=== PATIENT | female | born 1975 | race Two or more races ===

== ENCOUNTER 2016-11-09 01:44 | Emergency (ER) | payer MEDICAID ==
[~2016-11-09] VITALS: Ht 152.4 cm; Wt 54.9 kg
[~2016-11-09 01:44] MED LIST: KEFLEX500 MG ORAL; NKM; PHENAZOPYRIDIN200 MG ORAL
[2016-11-09 02:25] VITALS: BP 135/77
[2016-11-09] MEDS ORDERED: LORazepam 1mg tab ORAL ONE (02:30)
[2016-11-09] MEDS ORDERED: ATIVAN0.5 MG ORAL (02:33)
--- NOTE | 2016-11-09 02:34 | Emergency Room Report ---
History of Present Illness General Chief Complaint: Behavioral Complaint Source: Patient Present Illness HPI Is a 40-year-old female with a history anxiety. She was doing well. She got an argument with her fianc tonight in an anxiety attack. Has been ongoing for one hour now. Denies any fever chills denies any nausea vomiting. [place] short of breath and palpitation. Similar symptom in the past. No suicidal thought homicidal thought. No other complaint. Allergies: Coded Allergies: No Known Allergies (Unverified , 03/15/16) Patient History Past Medical History: see triage record, old chart reviewed, psych hx Past Surgical History: other Pertinent Family History: none Social History: Denies: smoking Last Menstrual Period: 2 weeks ago Now: No Immunizations: other Reviewed Nursing Documentation: PMH: Agreed, PSxH: Agreed Nursing Documentation-PMH History Of Psychiatric Problem: Yes - ANXIETY Review of Systems Eye: Denies: blurred vision, eye pain ENT: Denies: ear pain, nose congestion, throat swelling Respiratory: Denies: cough, shortness of breath Cardiovascular: Denies: chest pain, palpitations Gastrointestinal: Denies: abdominal pain, diarrhea, nausea, vomiting Musculoskeletal: Denies: back pain, joint pain Skin: Denies: rash Neurological: Denies: headache, numbness Endocrine: Denies: increased thirst, increased urine Hematologic/Lymphatic: Denies: easy bruising All Other Systems: negative except mentioned in HPI Physical Exam Vital Signs Date Time Temp Pulse Resp B/P Pulse Ox O2 Delivery O2 Flow Rate FiO2 11/09/16 02:15 98.2 69 18 135/77 98 Room Air vitals normal Sp02 EP Interpretation: reviewed, normal General Appearance: well appearing, no apparent distress, alert Head: normocephalic, atraumatic Eyes: bilateral eye EOMI, bilateral eye PERRL ENT: hearing grossly normal, normal pharynx Neck: full range of motion, supple, no meningismus Respiratory: chest non-tender, lungs clear, normal breath sounds Cardiovascular #1: regular rate, rhythm, no murmur Gastrointestinal: normal bowel sounds, non tender, no mass, no organomegaly, no bruit, non-distended Musculoskeletal: back normal, gait/station normal, normal range of motion Neurologic: alert, oriented x3 Psychiatric: anxious Skin: warm/dry Medical Decision Making Diagnostic Impression: Primary Impression: Panic anxiety syndrome ER Course Patient with anxiety. No suicidal thought homicidal thought. No particular for 5150. We'll discharge home. Last Vital Signs Date Time Temp Pulse Resp B/P Pulse Ox O2 Delivery O2 Flow Rate FiO2 11/09/16 02:15 98.2 69 18 135/77 98 Room Air Status: improved Disposition: HOME, SELF-CARE Condition: Stable Scripts Lorazepam* (ATIVAN*) 0.5 Mg Tablet 0.5 MG ORAL THREE TIMES A DAY, #21 TAB Prov: MOISÉS LEVIN M.D. 11/09/16 Additional Instructions: Followup with your DrLinda in 2-5 days. Return if symptom worsen. MOISÉS LEVIN M.D. Nov 09, 2016 02:34
[2016-11-09 02:38] VITALS: BP 135/77
== END 2016-11-09 02:38 | disposition home or self-care (01) ==
LOC: EMR 02:31
DX: F41.8 Other specified anxiety disorders (principal)
CPT/HCPCS: 99282

== ENCOUNTER 2018-10-10 00:27 | Emergency (ER) | payer MEDICAID ==
[~2018-10-10] VITALS: Ht 152.4 cm; Wt 54.9 kg
[~2018-10-10 00:27] MED LIST changes: +ATIVAN0.5 MG ORAL
--- NOTE | 2018-10-10 00:55 | NUR ---
ED Nurse Note: Patient presents as a walk-in patient with complaints of sporatic bouts of pain in the head, varying in location. Patient appears anxious, vital signs stable. Patient states she is worried because her mom had an anuerysm. Patient denies taking any medication or having any pertinent history.
[2018-10-10 00:57] VITALS: BP 156/80
[2018-10-10 01:21] VITALS: BP 143/68
[2018-10-10] MEDS ORDERED: IBUPROFEN600 MG ORAL (01:43)
--- NOTE | 2018-10-10 01:43 | Emergency Room Report ---
History of Present Illness General Chief Complaint: Headache Source: Patient Present Illness HPI Is a 42-year-old female with history of anxiety. She presents with chief complaint of headache. Headache is sharp and intermittent. This been ongoing for about a week. She googled the symptoms tonight and is also show that she may have an aneurysm, meningitis, bleed. This caused her to be very anxious he came in. Pain is usually back of her neck and head. Throbbing in nature. No nausea no vomiting. No fever chills but no focal deficit. No blurry vision. Better with [id number]-[id number] medication. Allergies: Coded Allergies: No Known Allergies (Unverified , 03/15/16) Patient History Past Medical History: see triage record, old chart reviewed Past Surgical History: none Pertinent Family History: none Social History: Denies: smoking Now: No : 5 Para: 2 Immunizations: other Reviewed Nursing Documentation: PMH: Agreed; PSxH: Agreed Nursing Documentation-PMH Past Medical History: No Stated History Review of Systems Eye: Denies: eye pain, blurred vision ENT: Denies: ear pain, nose congestion, throat swelling Respiratory: Denies: cough, shortness of breath Cardiovascular: Denies: chest pain, palpitations Gastrointestinal: Denies: abdominal pain, diarrhea, nausea, vomiting Musculoskeletal: Denies: back pain, joint pain Skin: Denies: rash Neurological: Reports: headache; Denies: numbness Endocrine: Denies: increased thirst, increased urine Hematologic/Lymphatic: Denies: easy bruising All Other Systems: negative except mentioned in HPI Physical Exam Vital Signs Date Time Temp Pulse Resp B/P (MAP) Pulse Ox O2 Delivery O2 Flow Rate FiO2 10/10/18 00:52 98.1 85 18 156/80 (105) 100 Room Air Vitals with high blood pressure Sp02 EP Interpretation: reviewed, normal General Appearance: well appearing, no apparent distress, alert Head: normocephalic, atraumatic Eyes: bilateral eye PERRL, bilateral eye EOMI ENT: hearing grossly normal, normal pharynx Neck: full range of motion, supple, no meningismus Respiratory: chest non-tender, lungs clear, normal breath sounds Cardiovascular #1: regular rate, rhythm, no murmur Gastrointestinal: normal bowel sounds, non tender, no mass, no organomegaly, no bruit, non-distended Musculoskeletal: back normal, gait/station normal, normal range of motion Psychiatric: mood/affect normal Medical Decision Making Diagnostic Impression: Primary Impression: Headache Qualified Codes: R51 - Headache ER Course Presents with headache. Initial blood pressure is elevated but is coming down. This may be exacerbated by anxiety. No evidence of any bleed, meningitis, CVA or TIA. No neoplastic process. Will discharge home with reassurance. CT/MRI/US Diagnostic Results CT/MRI/US Diagnostic Results : Imaging Test Ordered: CT head Impression Negative per radiologist Last Vital Signs Date Time Temp Pulse Resp B/P (MAP) Pulse Ox O2 Delivery O2 Flow Rate FiO2 10/10/18 01:21 98.1 99 18 143/68 100 Room Air Status: improved Disposition: HOME, SELF-CARE Condition: Stable Scripts Ibuprofen* (MOTRIN*) 600 Mg Tablet 600 MG ORAL THREE TIMES A DAY, #30 TAB 0 Refills Prov: Luis Alberto Snyder MD 10/10/18 Patient Instructions: General Headache Without Cause Additional Instructions: Follow-up with your doctor in a week. Have your doctor recheck on your blood pressure. It is slightly elevated here. Return if symptoms worsen. Luis Alberto Snyder MD Oct 10, 2018 01:43
--- NOTE | 2018-10-10 01:51 | NUR ---
ED Nurse Note: Patient cleared for discharge, verbalized understanding when receiving discharge instructions. ID band removed. Patient departed with all belongings after checking out at discharge desk.
[2018-10-10 01:52] VITALS: BP 143/68
--- NOTE | 2018-10-10 14:29 | Diagnostic Imaging Report ---
Indication: Headache Technique: Contiguous 5 mm thick transaxial imaging of the head obtained in a Siemens Sensation [address] scanner. Soft tissue and bone windows generated. Automatic Exposure Control was utilized. Total Dose length Product (DLP): 1333.[address] Dose Index Volume (CTDIvol): 70.38 mGy Comparison: none Findings: The size and configuration of the cortical sulci, basal cisterns, and ventricles are within normal limits for age. There is no mass effect, midline shift, or edema identified. There is no evidence of acute hemorrhage or abnormal intra-axial or extra-axial fluid collections. The bones and soft tissues are unremarkable. Impression: No mass effect, edema or acute bleed. [facility] has communicated the preliminary results to the Emergency Department. Their findings are largely concordant with this report. The CT scanner at [facility] is accredited by the [employer] and the scans are performed using dose optimization techniques as appropriate to a performed exam including Automatic Exposure control.
== END 2018-10-10 01:47 | disposition home or self-care (01) ==
LOC: EMR 01:10
DX: R51 Headache (principal)
CPT/HCPCS: 70450; 99284

== ENCOUNTER 2018-11-24 09:02 | Emergency (ER) | payer MEDICAID ==
[~2018-11-24] VITALS: Ht 152.4 cm; Wt 55.3 kg
[~2018-11-24 09:02] MED LIST changes: +IBUPROFEN600 MG ORAL
--- NOTE | 2018-11-24 09:15 | NUR ---
ED Nurse Note: PT WALKED IN TO ER TODAY FROM HOME. AOX4. PT C/O ITCHING AND PAINFUL INSECT BITES TO LEFT CALF, LEFT THIGH, AND RIGHT THIGH X 2 DAYS AGO. SITES APPEAR MILDLY SWOLLEN. NO ACTIVE DISCHARGE OR BLEEDING. SITES HOT TO TOUCH. PT UNSURE OF WHAT BIT HER.
[2018-11-24 09:16] VITALS: BP 118/64
[2018-11-24] MEDS ORDERED: DIPHENHYDRAMINE25 M1 ORAL (09:31)
[2018-11-24] MEDS ORDERED: CEPHALEXIN500 M1 ORAL (09:31)
[2018-11-24] MEDS ORDERED: HYDROCORTISONE-30 GM TOPIC (09:31)
--- NOTE | 2018-11-24 09:32 | Emergency Room Report ---
History of Present Illness General Chief Complaint: Animal Bite Source: Patient Present Illness HPI Disclaimer: Please note that this report is being documented using [employer] technology. This can lead to erroneous entry secondary to incorrect interpretation by the dictating instrument. HPI: This is an otherwise healthy 43-year-old female presenting for evaluation of skin rash. The patient states she first noticed the symptoms approximately 2 days ago. She was outside when she felt something brushed by her legs and and then immediately felt itching over the lateral calf and the back of the right thigh. Over the past 2 days she has had a progressive swelling and redness develop, both are circular approximately 5 to 7 cm. She denies any skin breakdown, drainage, bleeding. She cannot recall a specific bites but states that she was scratching the areas due to itching. She otherwise denies any systemic symptoms such as fevers, chills, chest pain, shortness of breath, wheezing, abdominal pain, vomiting or diarrhea. Has not taken any medication yet. PMH: Denies PSH: Denies Allergies: Denies Social Hx: Denies excessive drug or alcohol use Allergies: Coded Allergies: No Known Allergies (Unverified , 03/15/16) Patient History Last Menstrual Period: 09/2018 Now: No Nursing Documentation-PMH Past Medical History: No Stated History Review of Systems All Other Systems: negative except mentioned in HPI Physical Exam Vital Signs Date Time Temp Pulse Resp B/P (MAP) Pulse Ox O2 Delivery O2 Flow Rate FiO2 11/24/18 09:07 99.0 71 20 123/62 (82) 99 Room Air General: Awake and alert, no acute distress HEENT: NC/AT. EOMI. Resp: Normal work of breathing. Skin: Circular area of erythema that is warm to the touch and mildly tender to palpation approximately 7 cm in diameter. No overlying skin breakdown or drainage. Secondary approximately 5 cm across over the posterior aspect of the right thigh just below the gluteal fold. Warm to the touch, tender to palpation. No fluctuance. No skin breakdown or drainage MSK: Normal tone and bulk. Moving all extremities. No obvious deformity. Neuro: Awake and alert. Mentating appropriately. Medical Decision Making Diagnostic Impression: Primary Impression: Cellulitis ER Course 43-year-old female presents for evaluation of itchy erythematous and warm lesions over her skin over the past 2 days. Appears to be 2 areas of early cellulitis possibly related to an insect bite or scratch. We will start the patient on Keflex, hydrocortisone cream and Benadryl. She can follow-up with the clinics listed in her discharge paperwork and return to the emergency department she had any new or worsening symptoms. Last Vital Signs Date Time Temp Pulse Resp B/P (MAP) Pulse Ox O2 Delivery O2 Flow Rate FiO2 11/24/18 09:16 98.7 74 18 118/64 98 Room Air Disposition: HOME, SELF-CARE Condition: Stable Scripts Diphenhydramine Hcl* (DIPHENHYDRAMINE HCL*) 25 Mg Capsule 25 MG ORAL Q8H PRN for Itching, #30 CAP 0 Refills Prov: Robert Ennis MD 11/24/18 Hydrocortisone/Aloe Vera 1%* (HYDROCORTISONE-ALOE 1% CREAM*) Y Cr 1 APPLIC TOPIC Q6H PRN for Itching, #30 GM Prov: Robert Ennis MD 11/24/18 Cephalexin* (CEPHALEXIN*) 500 Mg Tablet 500 MG ORAL EVERY 12 HOURS for 10 Days, #20 CAP Prov: Robert Ennis MD 11/24/18 Referrals: Ashwin Mireles [facility] Patient Instructions: Cellulitis Additional Instructions: He will be started on antibiotics for skin infection which may be related to an insect bite or scratch. Use the medicated cream and the Benadryl as needed for itching and skin discomfort. If you are not significantly better after several days of antibiotics or if you notice a worsening swelling, drainage, warmth or spreading of the redness please return to the emergency department for reevaluation. Robert Ennis MD Nov 24, 2018 09:32
--- NOTE | 2018-11-24 09:33 | NUR ---
ED Nurse Note: PT SITTING PEACEFULLY IN BED IN NAD. AOX4. PRESCRIPTIONS AND DISCHARGE PAPERWORK EXPLAINED TO PT. PT VERBALIZES UNDERSTANDING AND ALL QUESTIONS ANSWERED. PRESCRIPTIONS SENT ELECTRONICALLY TO PT'S PHARMACY. DISCHARGE PAPERWORK GIVEN TO PT AND ID WRISTBAND REMOVED. PT WALKED OUT OF ER WITH STEADY GAIT AND ALL BELONGINGS.
[2018-11-24 09:34] VITALS: BP 122/62
== END 2018-11-24 09:35 | disposition home or self-care (01) ==
LOC: EMR 09:35
DX: L03.115 Cellulitis of right lower limb (principal)
CPT/HCPCS: 99282

== ENCOUNTER 2019-05-24 11:18 | Emergency (ER) | payer MEDICAID ==
[~2019-05-24] VITALS: Ht 152.4 cm; Wt 59.0 kg
[~2019-05-24 11:18] MED LIST changes: +CEPHALEXIN500 M1 ORAL; +DIPHENHYDRAMINE25 M1 ORAL; +HYDROCORTISONE-30 GM TOPIC
[2019-05-24 11:36] VITALS: BP 132/88
--- NOTE | 2019-05-24 11:38 | NUR ---
ED Nurse Note:pt. came with flu like symptoms and fever
--- NOTE | 2019-05-24 12:52 | NUR ---
ED Nurse Note:urine sent to labs
[2019-05-24 13:41] LABS: APPEARANCE,URINE CLEAR; BILIRUBIN, URINE NEGATIVE (NEGATIVE); COLOR,URINE PALE YELLOW; GLUCOSE, URINE (UA) NEGATIVE (NEGATIVE); KETONES,URINE NEGATIVE (NEGATIVE); LEUKOCYTE ESTERASE ,URINE 2+ (NEGATIVE); NITRITE,URINE NEGATIVE (NEGATIVE); PH,URINE 7 (4.5-8.0); PROTEIN,URINE NEGATIVE (NEGATIVE); UROBILINOGEN,URINE NORMAL MG/DL (0.0-1.0)
--- NOTE | 2019-05-24 14:00 | Emergency Room Report ---
History of Present Illness General Chief Complaint: Flu Like Symptoms Source: Patient Present Illness HPI 43 YO Female presents to the ED c/o 8/10 in severity generalized body aches with fevers and chills x [address], Cough, or nasal congestion. Pt. reports having a HOOD that is 4/10 in severity. She denies N/V/D/C. She reports urinary frequency. Denies hematuria, dysuria or urgency. She denies suspicion of . She denies abdominal pain or tenderness. She denies rashes, recent travel or ill contacts. She reports she did not receive this years Flu vaccine. She is also c/o burn form curling iron on her right breast x 3 days. She reports tenderness and sensitivity. She denies blisters, pus or bleeding. Allergies: Coded Allergies: No Known Allergies (Unverified , 03/15/16) Patient History Past Medical History: see triage record Past Surgical History: none Pertinent Family History: none Last Menstrual Period: now Now: No Reviewed Nursing Documentation: PMH: Agreed; PSxH: Agreed Nursing Documentation-PMH Past Medical History: No Stated History Review of Systems All Other Systems: negative except mentioned in HPI Physical Exam Vital Signs Date Time Temp Pulse Resp B/P (MAP) Pulse Ox O2 Delivery O2 Flow Rate FiO2 05/24/19 11:26 101.8 92 20 132/88 (103) 96 Room Air Sp02 EP Interpretation: reviewed, normal General Appearance: no apparent distress, alert, GCS 15, non-toxic Head: normocephalic, atraumatic Eyes: bilateral eye normal inspection, bilateral eye PERRL ENT: hearing grossly normal, normal voice Neck: full range of motion Respiratory: chest non-tender, lungs clear, normal breath sounds, speaking full sentences, other - 2nd degree burn to the right breast about 2" in length. Cardiovascular #1: regular rate, rhythm Gastrointestinal: normal bowel sounds, non tender, soft Genitourinary: normal inspection, no CVA tenderness Musculoskeletal: back normal, normal range of motion, gait/station normal, non- tender Neurologic: alert, motor strength/tone normal, oriented x3, sensory intact, responsive, speech normal Psychiatric: judgement/insight normal Skin: other - 2nd degree burn to the right breast about 2" in length. Lymphatic: no adenopathy Medical Decision Making PA Attestation Dr. Ennis is my supervising Physician whom patient management has been discussed with. Diagnostic Impression: Primary Impression: Acute viral syndrome Additional Impressions: Second degree burn of breast Qualified Codes: T21.21XA - Burn of second degree of chest wall, initial encounter UTI (urinary tract infection) Qualified Codes: N30.01 - Acute cystitis with hematuria ER Course 43 YO Female presents to the ED c/o 8/10 in severity generalized body aches with fevers and chills x [address], Cough, or nasal congestion. Pt. reports having a HOOD that is 4/10 in severity. She denies N/V/D/C. She reports urinary frequency. Denies hematuria, dysuria or urgency. She denies suspicion of . She denies abdominal pain or tenderness. She denies rashes, recent travel or ill contacts. She reports she did not receive this years Flu vaccine. She is also c/o burn form curling iron on her right breast x 3 days. She reports tenderness and sensitivity. She denies blisters, pus or bleeding. Ddx considered but are not limited to Viral syndrome, UTI, URI, pneumonia, Flu, meningitis just to name a few. Vital signs: Pt. is febrile, the remaining VS are WNL H&PE are most consistent with Viral Syndrome or UTI. There is a linear second- degree burn to the right breast covering less than 1% adult BSA and is noncircumferential. NO CVA tenderness. ORDERS: -UA: moderate bacteria with increased inflammatory markers indicating UTI ED INTERVENTIONS: - Tylenol PO for fever and body aches. Silvadene cream is applied. PT. does not have CVA tenderness, given UA results c/w UTI and pt. being febrile will rx an extended course of abx. PT. stable for outpatient management. She is given very strict return to ED precautions. DISCHARGE: At this time pt. is stable for d/c to home. Will provide printed patient care instructions, and any necessary prescriptions. Care plan and follow up instructions have been discussed with the patient prior to discharge. Labs Test 05/24/19 11:30 Urine Color Pale yellow Urine Appearance Clear Urine pH 7 (4.5-8.0) Urine Specific [place] 1.010 (1.005-1.035) Urine Protein Negative (NEGATIVE) Urine Glucose (UA) Negative (NEGATIVE) Urine Ketones Negative (NEGATIVE) Urine Blood 2+ (NEGATIVE) Urine Nitrite Negative (NEGATIVE) Urine Bilirubin Negative (NEGATIVE) Urine Urobilinogen Normal MG/DL (0.0-1.0) Urine Leukocyte Esterase 2+ (NEGATIVE) Urine RBC 2-4 /HPF (0 - 2) Urine WBC 20-30 /HPF (0 - 2) Urine Squamous Epithelial Cells Moderate /LPF (NONE/OCC) Urine Bacteria Moderate /HPF (NONE) Last Vital Signs Date Time Temp Pulse Resp B/P (MAP) Pulse Ox O2 Delivery O2 Flow Rate FiO2 05/24/19 13:32 100.0 05/24/19 11:36 92 20 Room Air 05/24/19 11:36 132/88 96 Disposition: HOME, SELF-CARE Condition: Stable Scripts Trimethoprim/Sulfamethoxazole 160/800* (BACTRIM DS TABLET*) 1 Each Tablet 1 TAB ORAL TWICE A DAY for 10 Days, #20 TAB Prov: Angeles Haq 05/24/19 Ibuprofen* (MOTRIN*) 600 Mg Tablet 600 MG ORAL THREE TIMES A DAY, #30 TAB 0 Refills Prov: Angeles Haq 05/24/19 Acetaminophen* (TYLENOL EXTRA STRENGTH*) 500 Mg Tablet 500 MG ORAL Q6H PRN for Mild Pain/Temp > 100.5, #30 TAB 0 Refills Prov: Angeles Haq 05/24/19 Patient Instructions: Urinary Tract Infection, [id number] Additional Instructions: Take medications as directed. Follow up with a Primary Care Provider in 3-5 days, even if your symptoms have resolved. --Please review list of primary care clinics, if you do not already have a primary care provider Return sooner to ED if new symptoms occur, or current symptoms become worse. - Please note that this Emergency Department Report was dictated using [employer] technology software, occasionally this can lead to erroneous entry secondary to interpretation by the dictation equipment. Angeles Haq May 24, 2019 14:00
[2019-05-24] MEDS ORDERED: BACTRIM DS TAB1 EAC1 ORAL (14:08)
[2019-05-24] MEDS ORDERED: TYLENOL EXTRA500 MG ORAL (14:08)
[2019-05-24] MEDS ORDERED: IBUPROFEN600 MG ORAL (14:08)
--- NOTE | 2019-05-24 14:17 | NUR ---
ER DISCHARGE NOTE: Patient is cleared to be discharged per ERMD, pt is aox4, on room air, with stable vital signs. pt was given dc and prescription instructions, pt was able to verbalize understanding, pt is able to ambulate with steady gait. pt took all belongings.
[2019-05-24 14:20] VITALS: BP 132/88
== END 2019-05-24 14:20 | disposition home or self-care (01) ==
LOC: EMR 14:04
DX: B34.9 Viral infection, unspecified (principal); T21.21XA Burn of second degree of chest wall, initial encounter; T31.0 Burns involving less than 10% of body surface; N30.01 Acute cystitis with hematuria; X19.XXXA Contact with other heat and hot substances, initial encounter; Y93.89 Activity, other specified; Y92.9 Unspecified place or not applicable
CPT/HCPCS: 81003; 87086; 87181; Z7502; 99283

== ENCOUNTER 2019-09-21 13:20 | Emergency (ER) | payer MEDICAID ==
[~2019-09-21] VITALS: Ht 154.9 cm; Wt 56.7 kg
[~2019-09-21 13:20] MED LIST changes: +BACTRIM DS TAB1 EAC1 ORAL; +TYLENOL EXTRA500 MG ORAL
[2019-09-21 13:26] VITALS: BP 117/60
--- NOTE | 2019-09-21 15:38 | Diagnostic Imaging Report ---
Indication: Back pain, weakness Technique: Sagittal T1 and T2 fast spin echo, sagittal STIR, axial T1 and T2 fast spin-echo images of the lumbar spine Comparison: none Findings: There are 5 nonrib-bearing lumbar-type vertebral bodies, assuming 12 paired ribs. Vertebral body heights are maintained; there is no evidence of compression fracture. No acute fractures identified. The tip of the conus terminates at L1-L2. Visualized portions of the cord demonstrate no focal cord signal abnormality. Some pulsation artifact is noted. Is mild disc desiccation with no focal disc desiccation at L5-S1. At T12-L1: There is no significant central canal or foraminal stenosis. At L1-L2: There is no significant central canal or foraminal stenosis. At L2-L3: There is no significant central canal or foraminal stenosis. At L3-L4: There is no significant central canal or foraminal stenosis. At L4-L5: There is no significant central canal or foraminal stenosis. At L5-S1: There is disc desiccation and a small disc bulge which results in minimal anterior indentation of the thecal sac but no significant central canal stenosis. There is associated mild narrowing of the left neural foramen although fat is still noted around the exiting nerve root. No significant foraminal narrowing noted on the right. The abdominal aorta is normal in caliber. Imaged portions of the visceral abdomen and pelvis unremarkable. IMPRESSION: No evidence of acute fracture or traumatic malalignment. Small disc bulge at L5-S1 resulting in mild left foraminal stenosis.
[2019-09-21 15:53] VITALS: BP 117/60
--- NOTE | 2019-09-21 18:04 | Emergency Room Report ---
History of Present Illness General Chief Complaint: Headache Source: Patient Present Illness HPI 43-year-old female presents the ED for evaluation. States she feels numbness on the left side of her left leg. Lateral aspect of her left leg. Radiates down towards her toes. Denies any weakness. Denies any pain. Denies any bowel or bladder incontinence. Denies any back pain. No other aggravating relieving factors. Denies any other associated symptoms Allergies: Coded Allergies: No Known Allergies (Unverified , 03/15/16) COVID-19 Screening Contact w/high risk pt: No Recent Travel to affected area: No Experienced COVID-19 symptoms?: No COVID-19 Testing performed CLERK RATING: No Patient History Past Medical History: none Past Surgical History: none Pertinent Family History: none Social History: Denies: smoking, alcohol use, drug use Last Menstrual Period: September 05, 2019 Now: No Immunizations: UTD Reviewed Nursing Documentation: PMH: Agreed; PSxH: Agreed Nursing Documentation-PMH Past Medical History: No Stated History Review of Systems All Other Systems: negative except mentioned in HPI Physical Exam Vital Signs Date Time Temp Pulse Resp B/P (MAP) Pulse Ox O2 Delivery O2 Flow Rate FiO2 09/21/19 13:26 98.6 74 18 117/60 97 Room Air Sp02 EP Interpretation: reviewed, normal General Appearance: no apparent distress, alert, GCS 15, non-toxic Head: normocephalic, atraumatic Eyes: bilateral eye normal inspection, bilateral eye PERRL ENT: hearing grossly normal, normal pharynx, no angioedema, normal voice Neck: full range of motion, supple/symm/no masses Respiratory: chest non-tender, lungs clear, normal breath sounds, speaking full sentences Cardiovascular #1: regular rate, rhythm, no edema Cardiovascular #2: 2+ carotid (R), 2+ carotid (L), 2+ radial (R), 2+ radial (L) , 2+ dorsalis pedis (R), 2+ dorsalis pedis (L) Gastrointestinal: normal bowel sounds, non tender, soft, non-distended, no guarding, no rebound Rectal: deferred Genitourinary: normal inspection, no CVA tenderness Musculoskeletal: back normal, normal range of motion, gait/station normal, non- tender Neurologic: alert, motor strength/tone normal, oriented x3, responsive, speech normal, other - reduced sensation to left lower extremity compared to right lower extremity Psychiatric: judgement/insight normal, memory normal, mood/affect normal, no suicidal/homicidal ideation Reflexes: 3+ bicep (R), 3+ bicep (L), 3+ tricep (R), 3+ tricep (L), 3+ knee (R) , 3+ knee (L) Skin: no rash Lymphatic: no adenopathy Medical Decision Making Diagnostic Impression: Primary Impression: Distal paresthesia Additional Impression: Bulging disc ER Course Hospital Course 43 yo F presents with numbness to L leg. no motor weakness Differential diagnoses include: neuropathy, sciatica, anxiety Clinical course Patient placed on stretcher. After initial history exam reveals female in no acute distress. 5 out of 5 strength to lower extremities. There is reduced sensation to the left leg compared to the right leg. Straight leg raise negative MRI shows L5-S1 disc bulge. With stenosis. I discussed findings with patient. Likely explanation of her symptoms. No other deficits. Will discharge home. Given copy of MRI report. Patient would likely benefit from outpatient physical therapy. States she has a PMD Diagnosis - distal parasthesias, bulging disk Stable and discharged to home. Followup with PMD. Return to ED if symptoms recur or worsen CT/MRI/US Diagnostic Results CT/MRI/US Diagnostic Results : Imaging Test Ordered: MRI L spine Impression Procedure: MRI L Spine no Contrast Indication: Back pain, weakness Technique: Sagittal T1 and T2 fast spin echo, sagittal STIR, axial T1 and T2 fast spin-echo images of the lumbar spine Comparison: none Findings: There are 5 nonrib-bearing lumbar-type vertebral bodies, assuming 12 paired ribs. Vertebral body heights are maintained; there is no evidence of compression fracture. No acute fractures identified. The tip of the conus terminates at L1- L2. Visualized portions of the cord demonstrate no focal cord signal abnormality. Some pulsation artifact is noted. Is mild disc desiccation with no focal disc desiccation at L5-S1. At T12-L1: There is no significant central canal or foraminal stenosis. At L1-L2: There is no significant central canal or foraminal stenosis. At L2-L3: There is no significant central canal or foraminal stenosis. At L3-L4: There is no significant central canal or foraminal stenosis. At L4-L5: There is no significant central canal or foraminal stenosis. At L5-S1: There is disc desiccation and a small disc bulge which results in minimal anterior indentation of the thecal sac but no significant central canal stenosis. There is associated mild narrowing of the left neural foramen although fat is still noted around the exiting nerve root. No significant foraminal narrowing noted on the right. The abdominal aorta is normal in caliber. Imaged portions of the visceral abdomen and pelvis unremarkable. IMPRESSION: No evidence of acute fracture or traumatic malalignment. Small disc bulge at L5-S1 resulting in mild left foraminal stenosis. Last Vital Signs Date Time Temp Pulse Resp B/P (MAP) Pulse Ox O2 Delivery O2 Flow Rate FiO2 09/21/19 15:53 98.6 74 18 117/60 97 Room Air Status: improved Disposition: HOME, SELF-CARE Condition: Stable Referrals: NON PHYSICIAN (PCP) [facility] Open 24 hour /7 days a week by Appointment Only [address] [facility] [address] [facility] [id number] Departure Forms: Return to Work Return to Work Date: Sep 23, 2019 Work Restrictions: No Heavy Lifting Patient Instructions: Spinal Stenosis, [id number] Afshin Carver MD Sep 21, 2019 18:04
== END 2019-09-21 15:53 | disposition home or self-care (01) ==
LOC: EMR 14:00
DX: R20.2 Paresthesia of skin (principal); M48.07 Spinal stenosis, lumbosacral region
CPT/HCPCS: 72148; Z7502; 99284